=== PATIENT | male | born 1945 | race Caucasian/White ===

== ENCOUNTER → 2019-03-31 13:24 | Outpatient (CLI) | payer OTHER ==
--- NOTE | 2019-04-03 16:48 | EC ---
PATIENT:CORY BETH DATE OF SERVICE: 03/31/19 SEX: M MEDICAL RECORD: [id number] DATE OF : 47 [facility] AGE OF PATIENT: 74 ADMISSION DATE: 03/31/19 REFERRING PHYSICIAN: INTERPRETING PHYSICIAN: MELECIO LOU MD ECHOCARDIOGRAM REPORT ECHO CHARGES 4 ECHO COMPLETE Date: 03/31/19 CLINICAL DIAGNOSIS: HTN/AORTIC STENOSIS/MITRAL REGURG ECHOCARDIOGRAPHIC MEASUREMENTS (adult normal given) AC root (d.<3.7cm) 3.0 cm LV Septum d (<1.2 cm> 1.3 cm Valve Excursion 1.7 cm LV Septum (systole) 1.5 cm Left Atria (s.<4.0cm> 3.5 cm LVPW d(<1.2cm) 1.6 cm RV (d.<2.3cm) 3.5 cm LVPW (sytole) 1.9 cm LV diastole(<5.6CM) 4.8 cm MV E-F(>70mm/sec) cm LV systole 2.8 cm LVOT Diameter 1.6 cm MV exc.(>10mm) 1.1 cm Est.ejection fraction (50-75%) % DOPPLER: LVIT cm/sec A 89.0 cm/sec E 55.0 cm/sec LA cm/sec RVSP 25 mmHg LVOT 138 cm/sec AOP1/2T m/s Asc. Ao 313 cm/sec RVOT cm/sec RA cm/sec PA cm/sec AV Gradient Peak 39.16mmHg AV Mean 27.29mmHg AV Area 1.1 cm MV Gradient Peak 3.35 mmHg MV Mean 1.43 mmHg MV Area cm COMMENTS: Organic Section Technical Lead: Isabel DONATO Item Processor: 1 Dr. Lou TAPE# PACS Pericardial Effusion N DATE OF SERVICE: ECHOCARDIOGRAM FINDINGS: 1. Left ventricular chamber size is within normal limits. Left ventricular systolic function is normal at 55% to 60%. 2. Left atrium is within normal limits at 3.5 cm. Right atrium and right ventricular chamber sizes are mildly dilated. 3. Valvular structures: Aortic valve demonstrates [id number] calcific ECHOCARDIOGRAM REPORT [id number] CORY BETH aortic stenosis, valve area calculates to 1.1 cm-squared with a gradient of 39-mm across the valve. The remaining valvular structures have normal structure and motion. 4. Doppler interrogation elsewise reveals mild mitral regurgitation, mild tricuspid regurgitation, no other valvular insufficiency or stenosis. Pulmonary systolic pressure is estimated at 25 mmHg. 5. No evidence of pericardial effusion or left ventricular thrombus. TRANSINT:[id number] Voice Confirmation ID: [id number] DOCUMENT ID: [id number] MELECIO LOU MD at 1648 CC: [id number] DICTATION DATE: 04/01/19 0751 COMMUNITY RELATIONS SPECIALIST: 04/01/19 0938 DEP CLI 03/31/19 [place] [id number] [place] [id number]
== END | disposition home or self-care (01) ==
LOC: D.HCCECHO 13:24
PROVIDERS: ATTEND Internal Medicine Interventional Cardiology
DX: I10 Essential (primary) hypertension (principal)